=== PATIENT | male | born 1985 ===

== ENCOUNTER 2018-02-15 12:35 | Emergency (ER) | payer SELFPAY ==
[2018-02-15] MEDS ORDERED: Fentanyl 100 MCG/2 ML VIAL ONE ×2 (12:43→14:16)
[2018-02-15] MEDS ORDERED: HYDROmorphone 0.5 MG/0.5 ML SYRINGE SLOW IVP SCH (13:00)
[2018-02-15 13:27] LABS: Hemoglobin 14.6 g/dL (14.0-18.0); Mean Corpuscular HGB CONC 33.4 g/dL (32.0-36.0); Mean Corpuscular Hemoglobin 30.3 pg (27.0-31.0); Mean Corpuscular Volume 90.8 fL (78.0-98.0); Mean Platelet Volume 9.3 fL (7.4-10.4); Platelet Count 254 thou/uL (130-400); RBC Distribution Width 12.1 % (11.5-14.5); Red Blood Cell (RBC) Count 4.83 mill/uL (4.70-6.10)
[2018-02-15 13:31] LABS: INR-International Normal Ratio 1.2; PTT 26.2 SEC (22.9-36.1); Prothrombin Time 14.9 SEC (12.0-14.7)
--- NOTE | 2018-02-15 13:34 | RAD ---
LEFT HUMERUS TWO VIEW: History: Injury. Trauma. Comparison: None. FINDINGS: There is a mildly comminuted fracture of the mid left humeral diaphysis with various angulation as we ll as shaft width posterolateral displacement. IMPRESSION: Comminuted midshaft fracture. POS: [facility]
--- NOTE | 2018-02-15 13:40 | RAD ---
AP PELVIS ONE VIEW: History: 32-year-old male with history of pelvic injury following trauma from a fall greater than 20 feet. FINDINGS: Minimally displaced fractures of the right and left inferior ischial pubic ramus. The right superior ischial pubic ramus and probable nondisplaced fracture of the left ischial ramus. Displaced vertical fracture through the left sacral ala and evidence for a minimally displaced fracture through the righ t sacral ala. No evidence for a femoral fracture or dislocation. IMPRESSION: Extensive pelvic fractures and vertical fractures of the right and left sacral ala with displacement of the left sacral ala fracture. POS: [facility]
[2018-02-15 13:41] LABS: Band 13 % (5-11); Lymphocytes 8 % (21-51); MDiff Complete? YES; Metamyelocyte 1 % (0-0); Monocytes 3 % (0-10); Neutrophil 75 % (42-75); PLT Morphology Comment Appears Adequate; RBC Morphology Normal
--- NOTE | 2018-02-15 13:44 | RAD ---
EXAM: CHEST ONE VIEW: History: 32-year-old male with history of chest injury following a fall of approximately 20-40 ft. FINDINGS: Monitor leads overlie the chest. Heart size is within normal limits. There is no pneumothorax or pleu ral effusion. The mediastinum appears unremarkable for inspiration and positioning. IMPRESSION: No significant acute intrathoracic disease. No pneumothorax or pleural effusion. POS: [facility]
--- NOTE | 2018-02-15 13:45 | CT ---
HEAD CT WITHOUT CONRTRAST: Date: 02/15/18 HISTORY: Level II trauma. 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 Post-traumatic pain. Loss of consciousness. COMPARISON: None. TECHNIQUE: A noncontrast head CT is performed from the skull base to the skull vertex. FINDINGS: No parenchymal hemorrhage or extra-axial hematoma. No midline shift. Basilar cisterns are patent. Bra in volume is age-appropriate. Cortical esposito-white matter differentiation is preserved. Ventricles and sulci are patent and symmetric. Adequate aeration of the sinuses and mastoid air cells. Calvarium is intact. IMPRESSION: No acute intracranial process. POS: [facility]
[2018-02-15 13:55] LABS: ALT (SGPT) 60 U/L (8-55); AST (SGOT) 81 U/L (5-34); Albumin 4.2 g/dL (3.5-5.0); Alkaline Phosphatase 52 U/L (40-150); Anion Gap 17 mmol/L (10-20); BUN (Urea Nitrogen) 13 mg/dL (8.9-20.6); Bilirubin, Total 0.4 mg/dL (0.2-1.2); Calc. Creatinine Clearance 0 mL/min (70-130); Calcium 9.1 mg/dL (7.8-10.44); Carbon Dioxide 19 mmol/L (22-29); Chloride 108 mmol/L (98-107); Estimated GFR-MDRD 78; Globulin 2.1 g/dL (2.4-3.5); Glucose 134 mg/dL (70-105); Lipase 75 U/L (8-78); Protein, Total 6.3 g/dL (6.0-8.3); Sodium 141 mmol/L (136-145)
--- NOTE | 2018-02-15 13:56 | CT ---
CT CERVICAL SPINE WITHOUT CONTRAST: HISTORY: The patient fell from a height of 20 feet. Posttraumatic pain. COMPARISON: None. FINDINGS: No craniocervical dissociation. Intact odontoid process. The lateral masses of C1 and C2 as well as the facets have appropriate alignment. There is a minimally displaced fracture involving the left l ateral mass of C2. No additional cervical spine fractures. Slight straightening of normal cervica l lordosis presumed to be due to patient position, muscle spasm, or cervical collar. Soft tissue neck structures, upper mediastinum, and lung apices are unremarkable. No significant destinee tral canal stenosis or neural foraminal narrowing. IMPRESSION: Minimally displaced fracture involving the left lateral mass of C2. Results of the head and C-spine CTs discussed with Dr. Harding 02/15/2018 at 1:16 p.m. CODE PAULINE POS: [facility]
--- NOTE | 2018-02-15 13:59 | CT ---
CT CHEST WITHOUT CONTRAST CT ABDOMEN WITHOUT CONTRAST CT PELVIS WITHOUT CONTRAST: Date: 02/15/18 HISTORY: Trauma. Fall from a cell phone tower. COMPARISON: None. FINDINGS: The lungs are clear. No pneumothorax. No effusion. No consolidation. No pneumatocele. No pulmonary co ntusion. Thyroid is unremarkable. No mediastinal adenopathy. No acute aortic injury. There is active contrast extravasation along the prelumbar plexus between the common iliac vessels, a xial image 93 of series 2. This is likely arterial given the contrast is within the arterial phase. T here is no significant venous contrast. There are large bilateral pelvic side wall hematomas. There are fractures of bilateral superior and i nferior pubic rami. The right inferior pubic ramus has a segmental fracture with a segmental fragment measuring 3.6 cm in length. The superior pubic ramus curves at the right pubic root. The left superi or pubic ramus also curves at the root without significant displacement. The left inferior pubic ronan s fracture is practically nondisplaced. There are bilateral sacral fractures of Zone 2, S1-S3 bilaterally. The acetabulum is without fracture . The iliac wings are without fracture. The anterior and posterior SI joints are not widened. There i s no evidence for vertical instability at the SI joints. There is a subtle focus of contrast extravasation along the left iliac vasculature, series 2, image 1 07. There is hematoma along the left iliopsoas muscle. There is a small left hematoma along the left paracolic gutter. There is anterior displacement of the urinary bladder. Extensive presacral hemorrhage is present. The liver is intact without injury. Adrenal glands are within injury. The spleen is without laceratio n or hematoma. Pancreas is without laceration or hematoma. Gallbladder is unremarkable. There is no compression fracture of the thoracic or lumbar spine. The sacrum and manubrium are intact . There is a small right L1 and left L1 rib. There are fractures of the left L2, L3, L4, and L5 transve rse processes. Visualized portions of the clavicles are intact. There is a nondisplaced fracture of right posterior 3rd rib. No displaced left-sided rib fracture. Sternum and manubrium are intact. IMPRESSION: 1. Bilateral Zone 2 fractures of the sacrum, S1-S3, extending into the neural foramina. 2. Two focal areas of active contrast extravasation which may be arterial in nature given the arteri al phase of contrast. This is between the iliac bifurcation, series 2, image 93, as well as along the left external iliac vasculature, series 2, image 107, on the left. There is a very large left, and s mall to moderate right-sided extraperitoneal hematoma, as well as large bilateral pelvic side wall he matomas. 3. Bilateral superior and inferior pubic rami fractures with right inferior pubic rami fracture havi ng a segmental 3.6 cm fragment. 4. Fractures of L2-L5 transverse processes. 5. Either motion artifact versus a fracture of the left posterior 3rd rib, although given the lack o f adjacent rib fractures, this may be artifactual. Recommend correlation with focal tenderness. 6. Hemorrhage along the left paracolic gutter, retroperitoneal in nature and may be tracking from th e pelvic fractures. Dr. Harding notified of findings at 1322 hours on 02/15/18. CODE CR. POS: [facility]
[2018-02-15 14:01] LABS: Potassium 2.9 mmol/L (3.5-5.1)
--- NOTE | 2018-02-15 14:08 | RAD ---
ONE VIEW LEFT SHOULDER: History: Trauma. Pain. FINDINGS: There is a displaced angulated fracture involving the mid left humeral diaphysis. Additional fracture is not appreciated on this single projection. IMPRESSION: Left humeral diaphysis fracture. POS: [facility]
[2018-02-15] MEDS ORDERED: Potassium Chloride 20 MEQ in Premix Bag 1 BAG IVPB SCH (14:15)
[2018-02-15 15:11] LABS: Bilirubin Negative (Negative); Blood, Urine Large (Negative); Clarity CLEAR (Clear); Glucose, Urine (Dipstick) Negative (Negative); Leukocyte Negative (Negative); Nitrite Negative (Negative); Protein, Urine (Dipstick) 30 mg/dL (Neg-Trace); Urobilinogen 0.2 mg/dL (0.2-1.0)
[2018-02-15 15:16] LABS: Bacteria/HPF None Seen HPF (None Seen); Pathc Cast-AUWi Flag 2.18 (0-2.49); Squamous Epithelial 0-3 HPF (0-3)
[2018-02-15 15:19] LABS: Yeast-AUWi Flag 48.8 (0-25.0)
[2018-02-15 15:30] LABS: Specific Gravity, Urine 1.057 (1.002-1.036)
[2018-02-15 15:31] LABS: Hyaline Casts/LPF 0-3 HYALINE CAST LPF (0-3 Hyaline); RBC/HPF 21-50 HPF (0-3); Yeast-All Forms None Seen HPF (None Seen)
[2018-02-15] MEDS ORDERED: ISOVUE-370 76%-LOCM 1 ML ONE (17:00)
--- NOTE | 2018-02-15 22:23 | CON ---
DATE OF CONSULTATION: CHIEF COMPLAINT: Status post fall from height. HISTORY OF PRESENT ILLNESS: Mr. 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 He lost balance in some fashion and fell. He fell approximately 30 feet. He landed injuring his left arm as well as his pelvis. He was taken to the emergency department. Workup is ongoing. He has had a CT scan and pelvic x-ray, which have shown pelvic fractures as well as left humerus fracture. He has been hemodynamically stable. He has received resuscitative fluids. He has received pain medications. PAST MEDICAL HISTORY: Negative. PAST SURGICAL HISTORY: Hernia repair. PSYCHIATRIC HISTORY: Negative. SOCIAL HISTORY: The patient has a history of marijuana use, also positive for alcohol and tobacco use. ALLERGIES: 1. BIAXIN. 2. CLARITHROMYCIN. PHYSICAL EXAMINATION: VITAL SIGNS: Blood pressure is 136/72, respiratory rate is 18, 100% on room air, and temperature is 98.6. GENERAL: He is lying supine. He is in pain in his pelvis and left arm. HEENT: Normocephalic and atraumatic. The patient is in a cervical collar. RESPIRATORY: Breathing comfortably. ABDOMEN: Soft, nontender, and nondistended. MUSCULOSKELETAL: The patient's pelvis has pain to palpation and pain with rocking. He has skin intact about the pelvis. He does have a sheet wrapped around his pelvis tied in the front. He has decreased sensation in the posterior aspect of the left leg and has weakness of plantar flexion. Dorsiflexion appears to be intact. He reports feeling sensation on the dorsal aspect of the foot and anterior leg. His right lower extremity; he reports normal sensation and strength. Palpable peripheral pulses. IMAGES: Pelvis CT scan as well as AP pelvis x-ray demonstrates a complex pelvic fracture. The patient has inferior and superior pubic ramus fractures bilaterally. He also has a comminuted and displaced sacral fracture with longitudinal component through the left-sided sacral foramen with compression of the foramen and comminution. On lateral CT image, there is also significant kyphosis with a 90-degree appearance to the sacrum. IMPRESSION: Sacral fracture with significant kyphosis as well as comminution and S2 nerve compression through comminution at the foramen. Also left humeral shaft fracture. PLAN: I have reviewed the patient's images in detail. I feel that he most likely is going to need spinal pelvic fixation to correct the kyphosis of his sacrum as well as an open posterior debridement of the foramen for his nerve symptoms. I am unable to perform this fixation as well as the neurosurgery teams locally. I think he will best be treated by transfer to [place] for multidisciplinary treatment of his significant sacral injury. He will have pain control here. He has been hemodynamically stable. His arm will be splinted. We will continue to be available until his transfer is complete. Job ID: [id number]
--- NOTE | 2018-02-17 17:32 | EKG ---
Test Reason : Blood Pressure : / mmHG Vent. Rate : 071 BPM Atrial Rate : 071 BPM P-R Int : 160 ms QRS Dur : 084 ms QT Int : 420 ms P-R-T Axes : 071 069 069 degrees QTc Int : 456 ms Normal sinus rhythm Normal ECG Confirmed by ROSI SHANKS, BECCA ([id number]), visual effects editor KATIE REYNA ([id number]) on 02/17/2018 5:32:27 PM Referred By: Confirmed By:BECCA ARANDA MD
== END 2018-02-15 14:56 | disposition short-term general hospital (02) ==
LOC: EDBD 12:35 → ERS 12:35
DX: S32.028A Other fracture of second lumbar vertebra, initial encounter for closed fracture (principal); S32.038A Other fracture of third lumbar vertebra, initial encounter for closed fracture; S32.048A Other fracture of fourth lumbar vertebra, initial encounter for closed fracture; S32.058A Other fracture of fifth lumbar vertebra, initial encounter for closed fracture; S12.100A Unspecified displaced fracture of second cervical vertebra, initial encounter for closed fracture; S32.592A Other specified fracture of left pubis, initial encounter for closed fracture; S32.591A Other specified fracture of right pubis, initial encounter for closed fracture; F17.200 Nicotine dependence, unspecified, uncomplicated; W17.89XA Other fall from one level to another, initial encounter
CPT/HCPCS: 36415; 70450; 71045; 71260; 72125; 72170; 74177; 80053; 81003; 81015; 83690; 85025; 85610; 85730; 86850; 86900; 86901; 93005; 96365; 96375; 96376; G0390; J1170; J3010; J3480